=== PATIENT | male | born 1990 | race African-American/Black ===

== ENCOUNTER 2016-04-25 14:21 | Emergency (ER) | payer SELFPAY ==
[~2016-04-25] VITALS: Ht 182.9 cm; Wt 72.6 kg
[2016-04-25] MEDS ORDERED: DOXYCYCLINE MO100 MG ORAL (14:48)
[2016-04-25] MEDS ORDERED: Lidocaine 1% MPF 10mg/ml 5ml ONE (15:19)
[2016-04-25 15:23] VITALS: BP 117/70
[2016-04-25 15:24] VITALS: BP 117/70
--- NOTE | 2016-04-25 15:53 | Emergency Room Report ---
History of Present Illness General Chief Complaint: General Complaint Source: Patient Present Illness HPI Patient is a 26-year-old male who presented after having increased dysuria and the penile discharge. Patient reports having symptoms for approximately one week. The patient had prior history of Chlamydia several years ago. Patient denied any fevers. He reported having some pain to his right inguinal area. He denied any skin lesions. He denied any vomiting. He denied prior history of immunocompromise or diabetes. The patient was requesting treatment for possible sexually transmitted infection. Allergies: Coded Allergies: No Known Allergies (Unverified , 04/25/16) Patient History Past Medical History: see triage record Reviewed Nursing Documentation: PMH: Agreed, PSxH: Agreed Nursing Documentation-PMH Past Medical History: No Stated History Review of Systems All Other Systems: negative except mentioned in HPI Physical Exam Vital Signs Date Time Temp Pulse Resp B/P Pulse Ox O2 Delivery O2 Flow Rate FiO2 04/25/16 14:38 98.2 72 16 116/69 95 Room Air Sp02 EP Interpretation: reviewed, normal General Appearance: normal inspection, well appearing, no apparent distress, alert, GCS 15 Head: atraumatic ENT: normal ENT inspection, hearing grossly normal, normal voice Neck: normal inspection, full range of motion, supple, no bony tend Respiratory: normal inspection, lungs clear, normal breath sounds, no respiratory distress, no retraction, no wheezing Cardiovascular #1: regular rate, rhythm, no edema Gastrointestinal: normal inspection, normal bowel sounds, non tender, soft, no guarding, no hernia Genitourinary: no CVA tenderness Musculoskeletal: normal inspection, back normal, normal range of motion Neurologic: normal inspection, alert, oriented x3, responsive, environmental program manager III-XII nml as tested, speech normal Psychiatric: normal inspection, judgement/insight normal, mood/affect normal Skin: normal inspection, normal color, no rash Medical Decision Making Diagnostic Impression: Primary Impression: Urethritis ER Course Patient presented for dysuria. Differential diagnosis included was not limited to appendicitis, urinary tract infection, pelvic inflammatory disease, urethritis, herpes among others. Patient's benign exam and does not appear to require any further imaging or laboratory testing at this time. The patient presented urethritis. The patient was given empiric treatment with Rocephin and was given prescription for doxycycline. Patient was advised followup with the health clinic for further STD testing including HIV and herpes. Patient is advised to return if any worsening condition or if any changes in status that are concerning. Last Vital Signs Date Time Temp Pulse Resp B/P Pulse Ox O2 Delivery O2 Flow Rate FiO2 04/25/16 15:24 98.0 70 15 117/70 99 Room Air Status: improved Disposition: HOME, SELF-CARE Condition: Stable Scripts Doxycycline Monohydrate* (DOXYCYCLINE MONOHYDRATE*) 100 Mg Capsule 100 MG ORAL Q12H, #14 CAP 0 Refills Prov: Bulmaro Lim 04/25/16 Referrals: NOT CHOSEN IPA/,REFERRING (PCP) Patient Instructions: Urethritis, Adult, Sexually Transmitted Disease, Easy-to- Read Bulmaro Lim Apr 25, 2016 15:53
== END 2016-04-25 15:25 | disposition home or self-care (01) ==
LOC: EMR 15:10
DX: N34.2 Other urethritis (principal)
CPT/HCPCS: 96372; 99283; J0696